=== PATIENT | male | born 1995 | race American Indian/Alaskan Native ===

== ENCOUNTER 2016-12-28 00:16 | Emergency (ER) | payer MEDICAID, OTHER ==
[2016-12-28 00:17] VITALS: BMI 19.5
--- NOTE | 2016-12-28 01:13 | ED PDOC ---
HPI: Skin/Bite Injury Time Seen by Provider: 12/28/16 00:27 Chief Complaint (Nursing): Abnormal Skin Integrity Chief Complaint (Provider): Abnormal Skin Integrity History Per: Patient History/Exam Limitations: no limitations Onset/Duration Of Symptoms: Other (x1 week) Current Symptoms Are (Timing): Still Present Location Of Injury: Left: Shoulder, Posterior: Neck Additional Complaint(s): 21 year old male presents to ED with abnormal skin integrity x1 week and has no past medical history. Patient note painful bumps on left, leg shoulder, and shaft of penis. Believes one bump is forming on upper lip. Patient states that he has experienced this before and was told it was due to MRSA infection. (-) fever. PCP: Tru Cruz Past Medical History Reviewed: Historical Data, Nursing Documentation, Vital Signs Vital Signs: Last Vital Signs Temp 98 F 12/28/16 00:33 Pulse 60 12/28/16 00:33 Resp 16 12/28/16 00:33 BP 139/64 12/28/16 00:33 Pulse Ox 98 12/28/16 01:17 - Medical History PMH: No Chronic Diseases - Surgical History Surgical History: No Surg Hx - Family History Family History: States: Unknown Family Hx - Social History Current smoker - smoking cessation education provided: No Ex-Smoker (has not smoked in the last 12 months): No Alcohol: Social Drugs: Denies - Immunization History Hx Tetanus Toxoid Vaccination: Yes Hx Influenza Vaccination: No Hx Pneumococcal Vaccination: No - Home Medications Home Medications: Ambulatory Orders Medication Instructions Recorded Sulfamethoxazole/Trimethopri 1 tab PO BID #20 tab 10/22/14 [Bactrim Ds 800 mg-160 mg] Ibuprofen [Motrin] 600 mg PO Q6 PRN #15 tab 12/11/15 Sulfamethoxazole/Trimethoprim 2 tab PO BID #28 tab 12/28/16 [Bactrim DS 800 mg-160 mg] - Allergies Allergies/Adverse Reactions: Allergies Allergy/AdvReac Type Severity Reaction Status Date / Time No Known Allergies Allergy Verified 12/28/16 00:33 Review of Systems ROS Statement: Except As Marked, All Systems Reviewed And Found Negative Constitutional: Negative for: Fever Skin: Positive for: Other ("bumps" on neck, left shoulder, upper lip, and penis) Physical Exam - Reviewed Nursing Documentation Reviewed: Yes Vital Signs Reviewed: Yes - Physical Exam Appears: Positive for: Non-toxic, No Acute Distress Head Exam: Positive for: ATRAUMATIC, NORMOCEPHALIC Skin: Positive for: Warm, Dry. Negative for: Normal Color (Scattered multiple pustules on right posterior neck, left posterior shoulder. 1 pustule noted on base of penile shaft. No vesicles, abscess, nor surrounding erythema) Neck: Positive for: Painless ROM, Supple Respiratory: Negative for: Respiratory Distress Extremity: Negative for: Deformity Neurologic/Psych: Positive for: Alert, Oriented - ECG O2 Sat by Pulse Oximetry: 98 (RA) Pulse Ox Interpretation: Normal Medical Decision Making Medical Decision Makin Initial impression: folliculitis Initial plan: * Finger stick Scribe Attestation: Documented by Zara Valiente acting as a scribe for Rolo Olmedo PA-C. MD Scribe Attestation: All medical record entries made by the Scribe were at my direction and personally dictated by me. I have reviewed the chart and agree that the record accurately reflects my personal performance of the history, physical exam, medical decision making, and the department course for this patient. I have also personally directed, reviewed, and agree with the discharge instructions and disposition. Disposition - Clinical Impression Clinical Impression: Folliculitis - Disposition Disposition: Routine/Home Disposition Time: 01:00 Condition: STABLE Prescriptions: Sulfamethoxazole/Trimethoprim [Bactrim DS 800 mg-160 mg] 2 tab PO BID #28 tab Instructions: Folliculitis (ED) Forms: [id number] (Nepali) Print Language: SLOVENIAN
[2016-12-28 01:15] VITALS: BP 139/64; PULSE 60; RESP 16; TEMP 98; O2SAT 98
== END 2016-12-28 01:16 | disposition home or self-care (01) ==
LOC: H.ER 00:16
DX: L73.9 Follicular disorder, unspecified (principal)